=== PATIENT | male | born 1960 | race Caucasian/White ===

== ENCOUNTER 2018-11-04 07:05 | Day surgery (SDC) | payer OTHER ==
[~2018-11-04] VITALS: Ht 190.5 cm; Wt 132.5 kg
[~2018-11-04 07:05] MED LIST: ALPR1TAB10 PO; CEPH-368 PO; CLIN300C8 PO; ESCI20TA PO; FENO145T30 PO; FLUO40CA2 PO; GEMF600T8 PO; HYDR25TA6 PO; LOSA100T14 PO; OXYC1TAB7 PO; TEMA30CA PO
[2018-11-04] MEDS ORDERED: LACTATED RINGERS 1,000 ML IV SCH ×2 (07:43→17:00)
[2018-11-04 07:45] VITALS: BP 152/101
[2018-11-04] MEDS ORDERED: METHYLENE BLUE 10 MG/ML 10ML ONE (11:00)
[2018-11-04] MEDS ORDERED: BUPIVACAINE/PF-EPI 0.5% 1:200K ONE (11:03)
[2018-11-04] MEDS ORDERED: PROPOFOL 10 MG/ML, 20ML ONE (12:11)
[2018-11-04] MEDS ORDERED: SUCCINYLCHOLINE 20 MG/ML, 10ML ONE (12:11)
[2018-11-04] MEDS ORDERED: ROCURONIUM 10MG/ML,5ML ONE ×2 (12:11→14:12)
[2018-11-04] MEDS ORDERED: CEFAZOLIN 1,000 MG ONE (12:12)
[2018-11-04] MEDS ORDERED: MIDAZOLAM 1 MG/ML, 2ML ONE (12:12)
[2018-11-04] MEDS ORDERED: ONDANSETRON 2MG/ML, 2ML ONE (12:12)
[2018-11-04] MEDS ORDERED: DEXAMETHASONE 4 MG/ML, 1ML ONE (12:12)
[2018-11-04] MEDS ORDERED: FENTANYL PF 100 MCG/2ML ONE ×4 (12:13→15:48)
[2018-11-04] MEDS ORDERED: SUGAMMADEX 200 MG/2 ML IVPush ONE ×2 (12:43→13:38)
[2018-11-04] MEDS ORDERED: OXYcodone 5 MG/5 ML ORAL.SOL UDC ONE (15:49)
[2018-11-04] MEDS ORDERED: KETOROLAC 30 MG/1 ML ONE (15:54)
[2018-11-04] MEDS ORDERED: ACETAMINOPHEN 325 MG TABLET PO PRN (16:00)
[2018-11-04] MEDS ORDERED: HYDROmorphone 2 MG/ML, 1ML IVPush PRN (16:00)
[2018-11-04] MEDS ORDERED: KETOROLAC 30 MG/1 ML IVPush ONE (16:00)
[2018-11-04] MEDS ORDERED: MORPHINE SULFATE 4 MG/ML, 1ML IVPush PRN ×2 (16:00→17:00)
[2018-11-04] MEDS ORDERED: MEPERIDINE/PF 25MG/0.5ML IVPush PRN (16:00)
[2018-11-04] MEDS ORDERED: HYDROcodone/APAP 7.5-325MG/15ML UDC PO PRN ×2 (16:00→17:00)
[2018-11-04] MEDS ORDERED: FENTANYL PF 100 MCG/2ML IV PRN (16:00)
[2018-11-04] MEDS ORDERED: OXYcodone 5 MG/5 ML ORAL.SOL UDC PO PRN (16:00)
[2018-11-04] MEDS ORDERED: KETOROLAC 30 MG/1 ML IV ONE (17:00)
[2018-11-04] MEDS ORDERED: ALPRazolam 1MG TAB PO PRN (17:00)
[2018-11-04] MEDS ORDERED: DIPHENHYDRAMINE 50 MG/ML, 1ML IVPush PRN (17:00)
[2018-11-04] MEDS ORDERED: ONDANSETRON 2MG/ML, 2ML IVPush PRN (17:00)
[2018-11-04] MEDS ORDERED: GEMFIBROZIL 600 MG TABLET PO SCH (21:00)
[2018-11-05] MEDS ORDERED: ESCITALOPRAM 10MG TABLET PO SCH (09:00)
[2018-11-05] MEDS ORDERED: LOSARTAN 50MG TABLET PO SCH (09:00)
== END 2018-11-04 18:06 | disposition home or self-care (01) ==
LOC: OUT 07:05 → 4NOR 16:35 → OUT 18:06
PROVIDERS: ATTEND Surgery
DX: C43.59 Malignant melanoma of other part of trunk (principal); C43.61 Malignant melanoma of right upper limb, including shoulder; E78.00 Pure hypercholesterolemia, unspecified; I10 Essential (primary) hypertension; Z72.89 Other problems related to lifestyle
CPT/HCPCS: 11602; 11606; 38525; 78195; 88307; 88341; 88342; 93005; A9541; C9898; G0378; J0330; J0690; J1100; J1885; J2250; J2405; J2704; J3010; J7120; 88305; Q9968

== ENCOUNTER 2019-05-21 17:17 | Emergency (ER) | payer OTHER ==
[~2019-05-21] VITALS: Ht 190.5 cm; Wt 128.0 kg
[2019-05-21 17:32] VITALS: BP 130/92
--- NOTE | 2019-05-21 17:44 | NUR ---
Bib remsa after falling down 10 stairs after becoming weak (dizzy) remsa placed c-collar and piv ems gave 12.5mg of phenergan +loc, no blood thinners motor/strength 5/5 x4, no focal deficits. Endorses cervical/upper back pain Placed on senior pricing analyst ECg obtained=qtc [phone] Patient/family report increased dizziness/syncope in the last 3 months
--- NOTE | 2019-05-21 18:20 | NUR ---
[facility]AY CHOPPER CALLED TO EXPEDITE EXAM-TECH REPORT PATIENT NEXT IN LINE FOR TEST
[2019-05-21] MEDS ORDERED: DIPH,PERTUSS(ACELL),TET VAC/PF 0.5 ML IM-VACC ONE ×2 (18:30→19:32)
--- NOTE | 2019-05-21 18:35 | NUR ---
TO CT SCAN
--- NOTE | 2019-05-21 18:48 | NUR ---
RAD awaiting CT results
[2019-05-21] MEDS ORDERED: HYDROcodone/APAP 5/325 TABLET ONE (18:52)
--- NOTE | 2019-05-21 18:59 | NUR ---
MEDICATED PER EMAR FOR NECK PAIN AT 02/04
[2019-05-21] MEDS ORDERED: HYDROcodone/APAP 5/325 TABLET PO ONE (19:00)
--- NOTE | 2019-05-21 19:24 | NUR ---
C-COLLAR REMOVED BY RADIOLOGY PATIENT BACK TO RADIOLOGY FOR PELVIC XRAYS
--- NOTE | 2019-05-21 19:55 | NUR ---
pain remains at 7/10 - provider made aware abrasions/laveration dressed by EMT's
--- NOTE | 2019-05-21 20:38 | NUR ---
PROVIDER REMINDED OF NEED FOR STAPLING AND ADDITIONAL PAIN MEDS NO CHANGE IN NEURO EXAM
--- NOTE | 2019-05-21 20:55 | NUR ---
IMMUNIZED WITH TDAP. PROVIDER TO BEDSIDE TO EVAL FOR STAPLING. STAPLING NOT NEEDED AT THIS TIME. SIMPLE BACITRACIN BANDAGING PERFORMED
== END 2019-05-21 21:37 | disposition home or self-care (01) ==
LOC: ED 18:33
DX: S16.1XXA Strain of muscle, fascia and tendon at neck level, initial encounter (principal); S00.03XA Contusion of scalp, initial encounter; S00.01XA Abrasion of scalp, initial encounter; I10 Essential (primary) hypertension; W10.9XXA Fall (on) (from) unspecified stairs and steps, initial encounter; Y93.89 Activity, other specified; Y92.009 Unspecified place in unspecified non-institutional (private) residence as the place of occurrence of the external cause; Y99.8 Other external cause status
CPT/HCPCS: 12001; 70450; 71045; 72125; 72170; 90471; 90715; 93005

== ENCOUNTER 2019-08-14 06:47 | Outpatient (CLI) | payer OTHER | END 2019-08-14 23:59 | disposition home or self-care (01) | LOC: CVU 06:47 | PROVIDERS: ATTEND Internal Medicine Cardiovascular Disease | DX: I77.819 Aortic ectasia, unspecified site (principal); I10 Essential (primary) hypertension; Z85.828 Personal history of other malignant neoplasm of skin | CPT/HCPCS: 93306 ==

== ENCOUNTER 2019-12-31 05:43 | Day surgery (SDC) | payer OTHER ==
[~2019-12-31] VITALS: Ht 190.5 cm; Wt 125.2 kg
[~2019-12-31 05:43] MED LIST changes: +FENO145T19 PO; -FENO145T30 PO
[2019-12-31] MEDS ORDERED: LACTATED RINGERS 1,000 ML IV SCH (06:39)
[2019-12-31 06:40] VITALS: BP 132/91
[2019-12-31] MEDS ORDERED: CHLORHEXIDINE 15 ML UDC MM ONE (07:00)
[2019-12-31] MEDS ORDERED: BUPIVACAINE/PF-EPI 0.5% 1:200K ONE (07:02)
[2019-12-31] MEDS ORDERED: MIDAZOLAM 1 MG/ML, 2ML ONE (07:15)
[2019-12-31 07:27] LABS: BASOPHILS # (AUTO) 0.04 x10^3/uL (0-0.1); BASOPHILS % (AUTO) 1 % (0-1); EOSINOPHILS # (AUTO) 0.35 x10^3/uL (0-0.4); EOSINOPHILS % (AUTO) 5 % (1-7); LYMPHOCYTES % (AUTO) 29 % (22-44); MD NO; MEAN CORPUSCULAR HEMOGLOBIN 32.8 pg (27.5-34.5); MEAN CORPUSCULAR HGB CONC 33.8 g/dL (33.2-36.2); MEAN CORPUSCULAR VOLUME 96.9 fL (81-97); MEAN PLATELET VOLUME 7.6 fL (7.4-10.4); MONOCYTES # (AUTO) 0.61 x10^3/uL (0.2-0.8); MONOCYTES % (AUTO) 9 % (2-9); NEUTROPHILS # (AUTO) 3.95 x10^3/uL (1.8-6.8); NEUTROPHILS % (AUTO) 57 % (42-75); PLATELET COUNT 285 x10^3/uL (130-400); RED CELL DISTRIBUTION WIDTH 13.5 % (9.4-14.8)
[2019-12-31] MEDS ORDERED: SUCCINYLCHOLINE 20 MG/ML, 10ML ONE (07:38)
[2019-12-31] MEDS ORDERED: ONDANSETRON 2MG/ML, 2ML ONE (07:38)
[2019-12-31] MEDS ORDERED: DEXAMETHASONE 4 MG/ML, 1ML ONE (07:38)
[2019-12-31] MEDS ORDERED: PROPOFOL 10 MG/ML, 20ML ONE (07:38)
[2019-12-31] MEDS ORDERED: CEFAZOLIN 1,000 MG ONE (07:38)
[2019-12-31] MEDS ORDERED: SUGAMMADEX 200 MG/2 ML IVPush ONE (07:38)
[2019-12-31] MEDS ORDERED: ROCURONIUM 10 MG/ML,10ML ONE (07:38)
[2019-12-31 07:41] LABS: ALANINE AMINOTRANSFERASE 53 U/L (12-78); ALBUMIN 3.8 g/dL (3.4-5.0); ANION GAP 10 mmol/L (5-15); CALCIUM 9.5 mg/dL (8.5-10.1); CHLORIDE 106 mmol/L (98-107); CREATININE 1.17 mg/dL (0.7-1.3)
[2019-12-31 07:43] LABS: ALKALINE PHOSPHATASE 63 U/L (45-117); BILIRUBIN,TOTAL 0.6 mg/dL (0.2-1.0)
[2019-12-31 07:46] LABS: INTERNATIONAL NORMALIZED RATIO 0.96 (0.93-1.1); PROTHROMBIN TIME 10.2 Seconds (9.6-11.5)
[2019-12-31] MEDS ORDERED: FENTANYL PF 100 MCG/2ML ONE (07:47)
[2019-12-31] MEDS ORDERED: BUPIVACAINE/PF-EPI 0.5% 1:200K INFIL ONE (08:05)
[2019-12-31] MEDS ORDERED: KETOROLAC 30 MG/1 ML IV PRN (08:30)
[2019-12-31] MEDS ORDERED: HYDROmorphone 1 MG/ML, 1ML INJ IV PRN (08:30)
[2019-12-31] MEDS ORDERED: MEPERIDINE/PF 25MG/0.5ML IVPush PRN (08:30)
[2019-12-31] MEDS ORDERED: METOCLOPRAMIDE 5 MG/ML, 2ML IV PRN (08:30)
[2019-12-31] MEDS ORDERED: LABETALOL 5MG/ML, 20ML IV PRN (08:30)
[2019-12-31] MEDS ORDERED: PROMETHAZINE 25 MG/ML, 1ML IV PRN (08:30)
[2019-12-31] MEDS ORDERED: hydrALAzine 20 MG/ML, 1ML IV PRN (08:30)
[2019-12-31] MEDS ORDERED: ONDANSETRON 2MG/ML, 2ML IVPush PRN (08:30)
[2019-12-31] MEDS ORDERED: FENTANYL PF 100 MCG/2ML IV PRN (08:30)
[2019-12-31] MEDS ORDERED: ALBUTEROL SULFATE 2.5 MG/3 ML NPPB PRN (08:30)
[2019-12-31] MEDS ORDERED: OXYcodone 5 MG/5 ML ORAL.SOL UDC PO PRN (08:30)
[2019-12-31] MEDS ORDERED: DIAZEPAM 5 MG/ML, 2ML IV PRN ×2 (08:30)
[2019-12-31] MEDS ORDERED: OXYcodone 5 MG/5 ML ORAL.SOL UDC ONE (08:47)
== END 2019-12-31 10:30 | disposition home or self-care (01) ==
LOC: OUT 05:43
PROVIDERS: ATTEND Surgery
DX: C43.59 Malignant melanoma of other part of trunk (principal); Z11.59 Encounter for screening for other viral diseases; I10 Essential (primary) hypertension; E78.00 Pure hypercholesterolemia, unspecified; E66.9 Obesity, unspecified; Z68.33 Body mass index [BMI] 33.0-33.9, adult; Z79.01 Long term (current) use of anticoagulants; Z79.899 Other long term (current) drug therapy; Z85.828 Personal history of other malignant neoplasm of skin; Z82.49 Family history of ischemic heart disease and other diseases of the circulatory system; Z83.42 Family history of familial hypercholesterolemia; Z80.8 Family history of malignant neoplasm of other organs or systems
CPT/HCPCS: 14000; 21936; 36415; 80053; 85025; 85610; 88307; 88341; 88342; 93005; J0330; J0690; J1100; J2250; J2405; J2704; J3010; J7120; U0001